=== PATIENT | female | born 1945 | race Two or more races ===

== ENCOUNTER 2022-03-29 17:20 | Emergency (ER) | payer OTHER ==
[~2022-03-29] VITALS: Ht 152.4 cm; Wt 61.7 kg
[2022-03-29] MEDS ORDERED: EZALLOR SPRINKL20 MG PO (17:40)
[2022-03-29] MEDS ORDERED: DILTIAZEM ER120 M2 PO (17:40)
[2022-03-29] MEDS ORDERED: ZESTRIL5 MG PO (17:40)
[2022-03-29] MEDS ORDERED: ESTAZOLAM1 MG PO (17:41)
== END 2022-03-29 18:31 | disposition home or self-care (01) ==
LOC: ER 17:20
DX: S92.525A Nondisplaced fracture of middle phalanx of left lesser toe(s), initial encounter for closed fracture (principal); X58.XXXA Exposure to other specified factors, initial encounter; Y93.89 Activity, other specified; Y92.018 Other place in single-family (private) house as the place of occurrence of the external cause; Y99.9 Unspecified external cause status; I10 Essential (primary) hypertension

== ENCOUNTER 2024-09-23 16:08 | Inpatient (IN) | payer OTHER ==
[~2024-09-23] VITALS: Ht 152.4 cm; Wt 55.3 kg
[~2024-09-23 16:08] MED LIST: CLONAZEPAM0.5 MG; DILTIAZEM ER120 M2 PO; ELIQUIS5 MG; ESTAZOLAM1 MG PO; EZALLOR SPRINKL20 MG PO; ZESTRIL5 MG PO
[2024-09-23] MEDS ORDERED: COZAAR50 MG PO (16:11)
[2024-09-23] MEDS ORDERED: FARXIGA10 MG PO (16:13)
[2024-09-23] MEDS ORDERED: ZOLOFT50 MG PO (16:14)
[2024-09-23] MEDS ORDERED: 0.9 % SODIUM CHLORIDE 1,000 ML IV SCH (16:45)
[2024-09-23] MEDS ORDERED: MAGNESIUM SULFATE 50% 1,000 MG/2 ML VIAL ONE (16:45)
[2024-09-23] MEDS ORDERED: LEVALBUTEROL HCL 1.25 MG/3 ML SOLUTION IH SCH (16:45)
[2024-09-23] MEDS ORDERED: METHYLPREDNISOLONE SOD SUCC 125 MG VIAL IV ONE (16:45)
[2024-09-23] MEDS ORDERED: METHYLPREDNISOLONE SOD SUCC 125 MG VIAL ONE (16:45)
[2024-09-23] MEDS ORDERED: MAGNESIUM SULFATE 10,000 MG/20 ML VIAL IV ONE (16:45)
[2024-09-23] MEDS ORDERED: AZITHROMYCIN 500 MG VIAL IV ONE ×2 (16:45)
[2024-09-23] MEDS ORDERED: LEVALBUTEROL HCL 1.25 MG/3 ML SOLUTION IH ONE (17:30)
[2024-09-23 17:53] LABS: HEMATOCRIT 39.4 % (36.0-45.00); HEMOGLOBIN 12.6 g/dL (12.0-15.00); MEAN CELL VOLUME 83.7 fL (80.00-100.00); MEAN CORPUSCULAR HEMOGLOBIN 26.9 pg (27.00-32.0); MEAN CORPUSCULAR HGB CONC 32.1 g/dl (32.0-36.0); PLATELET COUNT 361 K/uL (150-450); RED CELL DISTRIBUTION WIDTH 16.1 % (11.5-14.5)
[2024-09-23 18:18] LABS: ALBUMIN 3.1 gm/dL (3.4-5.0); BILIRUBIN TOTAL 0.45 mg/dL (0.3-1.2); CALCIUM 8.3 mg/dL (8.5-10.1); CREATININE SERUM 0.9 mg/dL (0.55-1.02); GFR 60.4; GLOBULINA 3.8 G/DL (2.4-3.5); POTASSIUM 4.42 mEq/L (3.5-5.1); TOTAL PROTEIN 6.9 gm/dL (6.4-8.2)
[2024-09-23 19:35] LABS: ABG PH 7.469 (7.35-7.45); ABG PO2 73.3 mmHg (80-100); ABG pCO2 28.5 mmHg (35-45); BICARBONATE 20.2 mmol/l (23-25); SaO2 95.5 %; Tco2 21.1 mmol/l; allen test SATISFACTORY; o2 21 %; puncture site RADIAL LEFT
[2024-09-23] MEDS ORDERED: GUAIFENESIN/DEXTROMETHORPHAN 10ML BLIST.PACK PO ONE (21:03)
[2024-09-23] MEDS ORDERED: LEVALBUTEROL HCL 0.63 MG/3 ML SOLUTION IH SCH (21:13)
[2024-09-23] MEDS ORDERED: CEFTRIAXONE SODIUM 1,000 MG VIAL IV SCH (21:13)
[2024-09-23] MEDS ORDERED: ACETAMINOPHEN 500 MG GEL..CAP PO PRN (21:15)
[2024-09-23] MEDS ORDERED: METHYLPREDNISOLONE SOD SUCC 40 MG VIAL IV SCH (21:15)
[2024-09-23] MEDS ORDERED: LOSARTAN POTASSIUM 50 MG TABLET PO SCH (21:27)
[2024-09-23] MEDS ORDERED: SERTRALINE HCL 50 MG TABLET PO SCH (21:27)
[2024-09-23] MEDS ORDERED: DILTIAZEM HCL 120 MG TABLET PO SCH (21:28)
[2024-09-23] MEDS ORDERED: APIXABAN 5 MG TABLET PO SCH (21:36)
[2024-09-24] VITALS: BP 142/79; O2SAT 96
[2024-09-24 09:45] VITALS: BP 140/80; O2SAT 100
[2024-09-24 09:56] LABS: ABG PH 7.459 (7.35-7.45); ABG pCO2 28.6 mmHg (35-45); BASE EXCESS -2.6 mmol/l; BICARBONATE 19.8 mmol/l (23-25); SaO2 96.3 %; Tco2 20.7 mmol/l; allen test SATISFACTORY; o2 21 %; puncture site RADIAL RIGHT
[2024-09-24] MEDS ORDERED: BUDESONIDE 0.5 MG/2 ML AMPUL.NEB IH SCH (10:05)
[2024-09-24 16:00] VITALS: BP 134/63; O2SAT 95
[2024-09-24] MEDS ORDERED: METHYLPREDNISOLONE SOD SUCC 125 MG VIAL IV SCH (17:00)
[2024-09-24] MEDS ORDERED: APIXABAN 5 MG TABLET PO SCH (21:00)
[2024-09-25] VITALS: BP 162/81; O2SAT 98
[2024-09-25 08:00] VITALS: BP 160/90; O2SAT 95
[2024-09-25] MEDS ORDERED: DILTIAZEM HCL 120 MG CAP.SR.24H PO SCH (09:00)
[2024-09-25] MEDS ORDERED: CODEINE PHOSPHATE/GUAIFENESIN 5 ML ML PO SCH (09:11)
[2024-09-25] MEDS ORDERED: IPRATROPIUM BROMIDE 0.5 MG/2.5 ML AMPUL.NEB IH SCH (12:00)
[2024-09-25 15:15] LABS: HEMATOCRIT 37.4 % (36.0-45.00); MEAN CELL VOLUME 84.4 fL (80.00-100.00); MEAN CORPUSCULAR HEMOGLOBIN 27.1 pg (27.00-32.0); MEAN CORPUSCULAR HGB CONC 32.1 g/dl (32.0-36.0); PLATELET COUNT 369 K/uL (150-450); RED BLOOD COUNT 4.44 M/uL (4.00-6.00); RED CELL DISTRIBUTION WIDTH 16.4 % (11.5-14.5)
[2024-09-25 15:44] LABS: ALBUMIN 2.8 gm/dL (3.4-5.0); BILIRUBIN TOTAL 0.3 mg/dL (0.3-1.2); CALCIUM 8.3 mg/dL (8.5-10.1); CREATININE SERUM 1.21 mg/dL (0.55-1.02); GFR 42.92; GLOBULINA 3.2 G/DL (2.4-3.5); POTASSIUM 4.18 mEq/L (3.5-5.1)
[2024-09-25 18:08] VITALS: BP 171/83; O2SAT 96
[2024-09-26 00:44] VITALS: BP 140/69
[2024-09-26 08:55] VITALS: BP 145/81; O2SAT 96
[2024-09-26 16:08] LABS: CALCIUM 8.2 mg/dL (8.5-10.1); GFR 53.48; POTASSIUM 4.09 mEq/L (3.5-5.1)
[2024-09-26 16:45] VITALS: BP 143/73; O2SAT 96
[2024-09-27] MEDS ORDERED: IPRATROPIUM BROMIDE 0.5 MG/2.5 ML AMPUL.NEB IH SCH
[2024-09-27 00:33] VITALS: BP 164/81
[2024-09-27 08:57] VITALS: BP 136/72; O2SAT 95
[2024-09-27] MEDS ORDERED: AZITHROMYCIN 500 MG VIAL IV SCH (09:00)
[2024-09-27] MEDS ORDERED: AZITHROMYCIN 500 MG VIAL IV ONE (09:39)
[2024-09-27 16:32] VITALS: BP 152/78; O2SAT 95
[2024-09-28 01:41] VITALS: BP 158/75
[2024-09-28 06:24] LABS: HEMATOCRIT 32.2 % (36.0-45.00); HEMOGLOBIN 10.8 g/dL (12.0-15.00); MEAN CELL VOLUME 83.4 fL (80.00-100.00); MEAN CORPUSCULAR HEMOGLOBIN 27.9 pg (27.00-32.0); MEAN CORPUSCULAR HGB CONC 33.5 g/dl (32.0-36.0); PLATELET COUNT 261 K/uL (150-450); RED BLOOD COUNT 3.87 M/uL (4.00-6.00); RED CELL DISTRIBUTION WIDTH 16.4 % (11.5-14.5)
[2024-09-28 06:59] LABS: CALCIUM 8.3 mg/dL (8.5-10.1); CREATININE SERUM 0.9 mg/dL (0.55-1.02); GFR 60.4; POTASSIUM 4.81 mEq/L (3.5-5.1)
[2024-09-28] MEDS ORDERED: AZITHROMYCIN 500 MG VIAL IV ONE (07:42)
[2024-09-28 09:16] VITALS: BP 159/74; O2SAT 98
[2024-09-28] MEDS ORDERED: DOXYCYCLINE HYCLATE 100MG IV ONE (16:34)
[2024-09-28] MEDS ORDERED: DOXYCYCLINE HYCLATE 100MG IV SCH (17:00)
[2024-09-28 18:08] VITALS: BP 175/84
[2024-09-29] MEDS ORDERED: METHYLPREDNISOLONE SOD SUCC 40 MG VIAL IV SCH (01:00)
[2024-09-29 01:11] VITALS: BP 151/83
[2024-09-29] MEDS ORDERED: DOXYCYCLINE HYCLATE 100MG IV ONE ×3 (04:30→23:23)
[2024-09-29 04:57] LABS: HEMATOCRIT 32.8 % (36.0-45.00); HEMOGLOBIN 11.1 g/dL (12.0-15.00); MEAN CELL VOLUME 82.6 fL (80.00-100.00); PLATELET COUNT 271 K/uL (150-450); RED BLOOD COUNT 3.97 M/uL (4.00-6.00); RED CELL DISTRIBUTION WIDTH 16.8 % (11.5-14.5)
[2024-09-29 05:26] LABS: ALBUMIN 2.4 gm/dL (3.4-5.0); ALKALINE PHOSPHATASE 80 U/L (50-136); ALT/SGPT 55 U/L (12-78); ANION GAP 11 (10.0-20.0); AST/SGOT 22 U/L (15-37); BILIRUBIN TOTAL 0.36 mg/dL (0.3-1.2); BLOOD UREA NITROGEN 37 mg/dL (7-18); BUN CREA RATIO 44 (7.0-25.0); CALCIUM 7.9 mg/dL (8.5-10.1); CARBON DIOXIDE 24 mEq/L (21-32); CHLORIDE 114 mmol/L (98-107); CREATININE SERUM 0.84 mg/dL (0.55-1.02); GLOBULINA 2.7 G/DL (2.4-3.5); GLUCOSE FASTING 127 mg/dL (65-100); OSMOLALITY SERUM 299 MOSM/KG (275-295); PHOSPHOROUS 3.3 mg/dL (2.5-4.9); POTASSIUM 3.65 mEq/L (3.5-5.1); SODIUM 145 mmol/L (136-145); TOTAL PROTEIN 5.1 gm/dL (6.4-8.2)
[2024-09-29 05:37] LABS: C-REACTIVE PROTEIN < 0.29 MG/DL (0.00-0.29)
[2024-09-29 06:04] LABS: hav igm Negative (Negative); hcv Non Reactive (Non Reactive); hep b c Negative (Negative); hep b s ag Negative (Negative)
[2024-09-29 08:30] VITALS: BP 163/79; O2SAT 97
[2024-09-29] MEDS ORDERED: BENZONATATE 200 MG CAPSULE PO SCH (09:00)
[2024-09-29 16:37] VITALS: BP 160/78; O2SAT 97
[2024-09-30 01:37] VITALS: BP 178/90
[2024-09-30 03:38] VITALS: BP 129/59
[2024-09-30 08:42] VITALS: BP 158/78; O2SAT 97
[2024-09-30 10:46] LABS: ABG PH 7.494 (7.35-7.45); ABG PO2 82.7 mmHg (80-100); ABG pCO2 27.8 mmHg (35-45); BASE EXCESS -0.9 mmol/l; SaO2 97.1 %
[2024-09-30 10:47] LABS: BICARBONATE 20.9 mmol/l (23-25); Tco2 21.8 mmol/l; allen test SATISFACTORY; o2 21 %; puncture site RADIAL LEFT
[2024-09-30 16:29] VITALS: BP 152/77; O2SAT 93
[2024-09-30] MEDS ORDERED: DOXYCYCLINE HYCLATE 100MG IV ONE (16:37)
[2024-09-30] MEDS ORDERED: METHYLPREDNISOLONE SOD SUCC 40 MG VIAL IV SCH (17:00)
[2024-10-01 01:39] VITALS: BP 160/85; O2SAT 96
[2024-10-01] MEDS ORDERED: DOXYCYCLINE HYCLATE 100MG IV ONE ×2 (03:41→15:47)
[2024-10-01 08:13] VITALS: BP 142/83
[2024-10-01 20:55] VITALS: BP 188/83
[2024-10-02 00:42] VITALS: BP 176/79; O2SAT 96
[2024-10-02] MEDS ORDERED: DOXYCYCLINE HYCLATE 100MG IV ONE (05:24)
[2024-10-02 09:03] VITALS: BP 163/78; O2SAT 95
== END 2024-10-02 13:07 | disposition home or self-care (01) | DRG 202 ==
LOC: ER 16:08 → MEDI 21:40 → SURH 09-24 10:39 → MEDI 09-25 12:28
PROVIDERS: General Practice; Internal Medicine Infectious Disease; Student in an Organized Health Care Education/Training Program; ADMIT Internal Medicine; ATTEND Internal Medicine
PROC: BB24ZZZ Computerized Tomography (CT Scan) of Bilateral Lungs (ICD-10-PCS; 2024-09-23)
PROC: 3E0F7GC Introduction of Other Therapeutic Substance into Respiratory Tract, Via Natural or Artificial Opening (ICD-10-PCS; 2024-09-23)
PROC: 4A12X4Z Monitoring of Cardiac Electrical Activity, External Approach (ICD-10-PCS; 2024-09-24)
PROC: 8E0ZXY6 Isolation (ICD-10-PCS; principal; 2024-09-27)
DX: J45.31 Mild persistent asthma with (acute) exacerbation (principal); E87.3 Alkalosis; T80.1XXA Vascular complications following infusion, transfusion and therapeutic injection, initial encounter; I80.8 Phlebitis and thrombophlebitis of other sites; B96.0 Mycoplasma pneumoniae [M. pneumoniae] as the cause of diseases classified elsewhere; Y74.1 Therapeutic (nonsurgical) and rehabilitative general hospital and personal-use devices associated with adverse incidents; Y92.230 Patient room in hospital as the place of occurrence of the external cause; I11.9 Hypertensive heart disease without heart failure

== ENCOUNTER 2025-05-06 15:17 | Emergency (ER) | payer OTHER ==
[~2025-05-06] VITALS: Ht 152.4 cm; Wt 56.7 kg
[~2025-05-06 15:17] MED LIST changes: +COZAAR50 MG PO; +FARXIGA10 MG PO; +ZOLOFT50 MG PO
[2025-05-06 15:37] VITALS: BP 172/74; O2SAT 98
[2025-05-06] MEDS ORDERED: 0.9 % SODIUM CHLORIDE 1,000 ML IV SCH (17:00)
[2025-05-06 17:21] LABS: BASO % 0.3 % (0.1-1.2); EOS # 0.02 (0.04-0.54); EOS % 0.2 % (0.7-7.0); LYMPH # 0.80 (1.18-3.74); LYMPH % 6.1 % (19.3-53.1); MEAN PLATELET VOLUME 9.30 fl (9.4-12.4); MONO # 0.46 (0.24-0.82); MONO % 3.5 % (4.7-12.5); NEUT # 11.77 (1.56-6.13); NEUT % 89.6 % (34.0-71.1); RED CELL DISTRIBUTION WIDTH 19.2 % (11.6-14.4)
[2025-05-06 17:47] LABS: ALT/SGPT 21.0 U/L (12-78); AST/SGOT 21.0 U/L (15-37); BILIRUBIN TOTAL 0.38 mg/dL (0.3-1.2); BUN CREA RATIO 30.0 (7.0-25.0); CREATININE SERUM 1.04 mg/dL (0.55-1.02); GFR 50.99; GLOBULINA 3.7 G/DL (2.4-3.5); GLUCOSE FASTING 102.0 mg/dL (65-100); OSMOLALITY SERUM 294.0 MOSM/KG (275-295)
[2025-05-06 18:15] LABS: COVID-19 AG NEGATIVE (NEGATIVE)
== END 2025-05-06 18:42 | disposition home or self-care (01) ==
LOC: ER 15:17
PROVIDERS: General Practice
DX: R55 Syncope and collapse (principal); R53.1 Weakness; Z20.822 Contact with and (suspected) exposure to COVID-19; I10 Essential (primary) hypertension
CPT/HCPCS: 36415; 70450; 93005; 96365; 99284; J7030